=== PATIENT | male | born 2000 ===

== ENCOUNTER 2023-06-06 13:23 | Outpatient (REF) | payer BC, SELFPAY | END 2023-06-06 13:24 | disposition home or self-care (01) | LOC: HO.SH 13:23 | PROVIDERS: Visit Provider Family Medicine | DX: Z01.118 Encounter for examination of ears and hearing with other abnormal findings (principal); H93.13 Tinnitus, bilateral | CPT/HCPCS: 92557; 92567; 92588 ==